=== PATIENT | male | born 1970 | race African-American/Black ===

== ENCOUNTER 2016-07-04 21:42 | Emergency (ER) | payer MEDICAID, OTHER ==
[~2016-07-04] VITALS: Ht 193 cm; Wt 67.0 kg
[2016-07-05] MEDS ORDERED: KETOROLAC 60MG/2ML VIAL IM ONE (02:30)
[2016-07-05 02:48] VITALS: BP 137/87
== END 2016-07-05 03:13 | disposition home or self-care (01) ==
LOC: ER 21:42
DX: S39.012A Strain of muscle, fascia and tendon of lower back, initial encounter (principal); F17.210 Nicotine dependence, cigarettes, uncomplicated; F12.10 Cannabis abuse, uncomplicated; X50.0XXA Overexertion from strenuous movement or load, initial encounter; Y93.89 Activity, other specified; Y92.89 Other specified places as the place of occurrence of the external cause; Y99.0 Civilian activity done for income or pay
CPT/HCPCS: 96372; 99283; J1885